=== PATIENT | male | born 1975 | race Caucasian/White ===

== ENCOUNTER → 2020-08-02 | Outpatient (CLI) | payer OTHER ==
[~2020-08-02] MED LIST: BUTALB-APAP-CA1 EACH PO; PRILOSEC 20 MG20 MG PO
== END ==
LOC: LAB 09:10
PROVIDERS: ATTEND Anesthesiology
DX: Z01.812 Encounter for preprocedural laboratory examination (principal); Z20.822 Contact with and (suspected) exposure to COVID-19

== ENCOUNTER → 2021-08-02 | Outpatient (CLI) | payer OTHER ==
[~2021-08-02] MED LIST changes: +ADDERALL XR 2020 MG PO; +ASPIRIN325 PO; +EFFIENT10 MG PO; +ISOSORBIDE DINI30 MG PO; +LIPITOR 20 MG T20 M1 PO; +NITROSTAT0.4 M1 SUBLING; +NORCO5 PO; +Nicotine Transdermal TRANSDERM; +PROAIR HFA8.5 GM INH; +SYMBICORT80 MCG/4.1 INH; +XANAX 0.5 MG0.5 MG PO
== END ==
LOC: SJCVCIMAG 07-18 14:55
PROVIDERS: ATTEND Internal Medicine
DX: I08.3 Combined rheumatic disorders of mitral, aortic and tricuspid valves (principal); I49.8 Other specified cardiac arrhythmias; R07.89 Other chest pain; I25.10 Atherosclerotic heart disease of native coronary artery without angina pectoris; J44.9 Chronic obstructive pulmonary disease, unspecified; Z82.49 Family history of ischemic heart disease and other diseases of the circulatory system; F17.210 Nicotine dependence, cigarettes, uncomplicated; Z72.89 Other problems related to lifestyle; Z79.899 Other long term (current) drug therapy

== ENCOUNTER 2021-08-07 09:38 | Observation (INO) | payer OTHER ==
[~2021-08-07] VITALS: Ht 170.2 cm; Wt 94.8 kg
[2021-08-07] VITALS (12 sets, daily range): BP systolic 106–130; BP diastolic 76–99
[~2021-08-07 09:38] MED LIST changes: -ADDERALL XR 2020 MG PO; -ASPIRIN325 PO; -EFFIENT10 MG PO; -ISOSORBIDE DINI30 MG PO; -LIPITOR 20 MG T20 M1 PO; -NITROSTAT0.4 M1 SUBLING; -NORCO5 PO; -Nicotine Transdermal TRANSDERM; -PROAIR HFA8.5 GM INH; -SYMBICORT80 MCG/4.1 INH; -XANAX 0.5 MG0.5 MG PO
[2021-08-07] MEDS ORDERED: PROAIR HFA8.5 GM INH (11:23)
[2021-08-07] MEDS ORDERED: XANAX 0.5 MG0.5 MG PO (11:24)
[2021-08-07] MEDS ORDERED: ADDERALL XR 2020 MG PO (11:24)
[2021-08-07] MEDS ORDERED: SYMBICORT80 MCG/4.1 INH (11:25)
[2021-08-07] MEDS ORDERED: NORCO5 PO (11:25)
[2021-08-07] MEDS ORDERED: LIPITOR 20 MG T20 M1 PO (11:25)
[2021-08-07] MEDS ORDERED: NITROSTAT0.4 M1 SUBLING (11:26)
[2021-08-07] MEDS ORDERED: ISOSORBIDE DINI30 MG PO (11:27)
[2021-08-07 11:38] LABS: HEMATOCRIT 51.9 % (42.0-52.0); HEMOGLOBIN 17.9 gm/dL (14.0-18.0); MCH 32.2 pg (26.0-34.0); MCHC 34.4 g/dL (28.0-37.0); MCV 93.5 fL (80.0-100.0); RBC 5.55 mil/uL (4.50-6.00); WBC 7.9 thou/uL (4.0-11.0)
[2021-08-07 11:39] LABS: CALCIUM 9.2 mg/dL (8.5-10.1); CREATININE 0.7 mg/dL (0.7-1.3); POTASSIUM 4.3 mmol/L (3.5-5.1)
[2021-08-08 01:00] VITALS: BP 106/76
[2021-08-08 03:52] VITALS: BP 115/84
[2021-08-08 04:00] VITALS: BP 115/84
[2021-08-08] MEDS ORDERED: Nicotine Transdermal TRANSDERM (07:52)
[2021-08-08] MEDS ORDERED: ASPIRIN325 PO (07:52)
[2021-08-08] MEDS ORDERED: EFFIENT10 MG PO (07:52)
[2021-08-08 08:27] VITALS: BP 130/108
[2021-08-08 13:20] VITALS: BP 130/108
--- NOTE | 2021-08-11 12:06 | D ---
[facility] [place] [address] DISCHARGE SUMMARY Name: [place] Room #: 208-P [facility] Brett Vera#: [id number] Admission: 08/07/21 Attend Phys: Gopal Ruvalcaba Discharge: 08/08/21 Date of : 73 Report #: [id number] THIS REPORT FOR: cc: Glen Ayala MD, Michael D. MD Lammoglia, Francisco J. MD ~ DATE OF SERVICE: 08/11/2021 ADMITTING DIAGNOSES: 1. Unstable angina. 2. Pulmonary nodules. 3. Hypertension. DISCHARGE DIAGNOSES: 1. Coronary artery disease with unstable angina. 2. Lung nodules. 3. Hypertension. DISCHARGE MEDICATIONS: Omeprazole 20 every day, albuterol inhaler, alprazolam 0.5, Adderall-XR, atorvastatin 20, Symbicort, [place], nitroglycerin, prasugrel 10 mg daily, aspirin 325 daily, nicotine transdermal patch. PROCEDURES PERFORMED: 1. Left heart catheterization. 2. Percutaneous revascularization with LEANDRA stenting. 3. Supervision of conscious sedation. FOLLOW UP: Dr. Ruvalcaba in 3-4 weeks. DISCHARGE DIET: [employer] Step 1 Diet. BRIEF CLINICAL HISTORY: See history and physical in the chart. HOSPITAL COURSE: He was admitted to the hospital for elective heart catheterization. This demonstrated the presence of high-grade significant large left circumflex vessel, which was subsequently stented with a 2.75 mm LEANDRA stent and postdilated to 3.2 mm. The patient remained electrically and hemodynamically stable post-procedure. He was allowed to ambulate without any limitations. He states he felt much improved where he was previously unable to walk 10-15 feet. He went around the unit several times without any issues. No hematoma was noted. He was electrically and hemodynamically stable as stated [facility] [address] [place] [address] DISCHARGE SUMMARY Name: CORYCHEKO RIVAS Room #: 208-P [facility] Brett Pedroza#: [id number] Admission: 08/07/21 Attend Phys: Gopal Ruvalcaba Discharge: 08/08/21 Date of : 73 Report #: [id number] and being discharged in stable and improved condition to follow up with the previously stated discharge instructions and medications. <ELECTRONICALLY SIGNED> By: Gopal Ruvalcaba MD 08/11/21 1206 [id number] [id number] Gopal Ruavlcaba MD /nt
== END 2021-08-08 14:03 | disposition home or self-care (01) ==
LOC: CATH 09:38 → 2N 12:27 → CATH 13:19 → 2N 08-08 14:03
PROVIDERS: ADMIT Internal Medicine; ATTEND Internal Medicine
DX: I25.110 Atherosclerotic heart disease of native coronary artery with unstable angina pectoris (principal); J44.9 Chronic obstructive pulmonary disease, unspecified; K21.9 Gastro-esophageal reflux disease without esophagitis; I10 Essential (primary) hypertension; F17.210 Nicotine dependence, cigarettes, uncomplicated; E78.5 Hyperlipidemia, unspecified; Z79.899 Other long term (current) drug therapy